=== PATIENT | male | born 1965 | race Caucasian/White ===

== ENCOUNTER 2022-09-23 08:21 | Day surgery (SDC) | payer OTHER ==
[~2022-09-23] VITALS: Ht 185.4 cm; Wt 133.4 kg
[~2022-09-23 08:21] MED LIST: ASPIRIN E.C. 8181 MG PO; BETAPACE 80MG80 MG PO; ELIQUIS 5MG PO; ISOPTIN SR120 MG PO; LIPITOR 40MG TA40 MG PO; PRINIVIL10 MG PO; SYNTHROID0.075 MG/T PO; TOPROL XL100 MG PO; VITAMIN B12 1541 TAB PO; VITAMIN D 400400 IU PO
[2022-09-23] MEDS ORDERED: BETAPACE 120MG120 MG PO (08:46)
[2022-09-23 09:39] VITALS: BP 126/86; PULSE 73; TEMP 98
[2022-09-23 09:45] LABS: BASO # 0.1 K/mm3 (0.0-0.2); BASO % 0.7 % (0.0-2.0); EOS # 0.1 K/mm3 (0.0-0.7); GRAN # 4.5 K/mm3 (1.4-6.5); GRAN % 64.8 % (42.2-75.2); HEMATOCRIT 49.5 % (42.0-52.0); HEMOGLOBIN 16.6 g/dl (13.5-18.0); LYMPH # 1.6 K/mm3 (1.2-3.4); LYMPH % 23.8 % (20.0-51.0); MEAN CELL VOLUME 93 fl (80.0-100.0); MEAN CORPUSCULAR HEMOGLOBIN 31 pg (27-31); MEAN CORPUSCULAR HGB CONC 34 g/dl (33.0-37.0); MEAN PLATELET VOLUME 8.9 fl (7.4-10.4); MONO # 0.7 K/mm3 (0.1-0.6); MONO % 9.6 % (1.7-9.3); PLATELET COUNT 199 K/mm3 (130-400); RED BLOOD COUNT 5.32 M/mm3 (4.20-5.60); REDCELL DISTRIBUTION WIDTH-CV 14.5 % (11.5-14.5)
[2022-09-23 10:00] LABS: CALCIUM 9.4 mg/dL (8.4-10.2); CREATININE, serum 0.78 mg/dL (0.72-1.25); POTASSIUM 4.1 mmol/L (3.5-4.5)
[2022-09-23 10:12] LABS: INR 1.4 (0.8-3.0); PROTHROMBIN TIME 15.6 SECONDS (9.7-12.8)
[2022-09-23 10:15] LABS: PARTIAL THROMBOPLASTIN TIME 45.5 SECONDS (26.0-37.0)
[2022-09-23 10:16] VITALS: BP 127/71; PULSE 76
[2022-09-23 10:21] LABS: THYROID STIMULATING HORMONE 2.537 uIU/mL (0.350-4.940)
[2022-09-23 10:30] VITALS: PULSE 62
[2022-09-23 10:45] VITALS: PULSE 69
[2022-09-23 11:00] VITALS: PULSE 67
[2022-09-23 11:15] VITALS: BP 148/85; PULSE 61
--- NOTE | 2022-09-23 11:20 | NUR ---
Pt has done well during his recovery. Pt has remained in SR with occasional pacs since his cardioversion. 1% hydrocortisone cream was applied to areas where patches were placed to treat some discomfort in these areas. Pt remained awake and alert, he was able to drink some fluids. Pt walked to bathroom and back to room 11 with steady gait. Pt stated felt "better" than when he walked in to express unit earlier today. I reviewed dc/rx/fu instructions with pt and ; both verbalized understanding. Pt was escorted to exit via wheelchair.
== END 2022-09-23 11:56 | disposition home or self-care (01) ==
LOC: COL.CAR 08:21
PROVIDERS: Internal Medicine Adult Congenital Heart Disease
DX: I48.19 Other persistent atrial fibrillation (principal); E66.01 Morbid (severe) obesity due to excess calories; I10 Essential (primary) hypertension; I25.10 Atherosclerotic heart disease of native coronary artery without angina pectoris; E78.2 Mixed hyperlipidemia; G47.33 Obstructive sleep apnea (adult) (pediatric); I08.1 Rheumatic disorders of both mitral and tricuspid valves; Z68.39 Body mass index [BMI] 39.0-39.9, adult; Z79.899 Other long term (current) drug therapy
CPT/HCPCS: J2704

== ENCOUNTER 2022-12-16 22:28 | Observation (INO) | payer OTHER ==
[~2022-12-16] VITALS: Ht 185.4 cm; Wt 134.0 kg
[~2022-12-16 22:28] MED LIST changes: +BETAPACE 120MG120 MG PO
[2022-12-16 22:44] LABS: BASO # 0.1 K/mm3 (0.0-0.2); BASO % 0.6 % (0.0-2.0); EOS # 0.2 K/mm3 (0.0-0.7); GRAN # 4.7 K/mm3 (1.4-6.5); GRAN % 56.9 % (42.2-75.2); HEMATOCRIT 49.8 % (42.0-52.0); HEMOGLOBIN 16.7 g/dl (13.5-18.0); LYMPH # 2.2 K/mm3 (1.2-3.4); LYMPH % 26.9 % (20.0-51.0); MEAN CELL VOLUME 94 fl (80.0-100.0); MEAN CORPUSCULAR HEMOGLOBIN 32 pg (27-31); MEAN CORPUSCULAR HGB CONC 34 g/dl (33.0-37.0); MEAN PLATELET VOLUME 9.1 fl (7.4-10.4); MONO # 1.1 K/mm3 (0.1-0.6); MONO % 13.4 % (1.7-9.3); PLATELET COUNT 175 K/mm3 (130-400); REDCELL DISTRIBUTION WIDTH-CV 14.8 % (11.5-14.5)
[2022-12-16] MEDS ORDERED: GLUCOPHAGE XR500 M1 PO (22:54)
[2022-12-16 23:04] LABS: ALBUMIN 4.3 gm/dL (3.5-5.0); BILIRUBIN,TOTAL 0.7 mg/dL (0.2-1.2); CALCIUM 9.7 mg/dL (8.4-10.2); CREATININE, serum 0.87 mg/dL (0.72-1.25); POTASSIUM 4.1 mmol/L (3.5-4.5); TOTAL PROTEIN 7.3 gm/dL (6.2-8.1)
[2022-12-16 23:25] LABS: TROPONIN-I 0.036 ng/mL (0.00-0.033)
[2022-12-17] VITALS (14 sets, daily range): BP systolic 106–135; BP diastolic 57–85; PULSE 51–102; TEMP 97.5–98.2
[2022-12-17 07:28] LABS: BASO # 0.1 K/mm3 (0.0-0.2); EOS # 0.1 K/mm3 (0.0-0.7); EOS % 1.9 % (0.0-4.0); GRAN # 3.3 K/mm3 (1.4-6.5); GRAN % 55.7 % (42.2-75.2); HEMATOCRIT 44.1 % (42.0-52.0); HEMOGLOBIN 15.3 g/dl (13.5-18.0); LYMPH # 1.8 K/mm3 (1.2-3.4); LYMPH % 30.7 % (20.0-51.0); MEAN CELL VOLUME 94 fl (80.0-100.0); MEAN CORPUSCULAR HEMOGLOBIN 33 pg (27-31); MEAN CORPUSCULAR HGB CONC 35 g/dl (33.0-37.0); MEAN PLATELET VOLUME 9.7 fl (7.4-10.4); MONO # 0.6 K/mm3 (0.1-0.6); MONO % 10.4 % (1.7-9.3); PLATELET COUNT 159 K/mm3 (130-400); RED BLOOD COUNT 4.67 M/mm3 (4.20-5.60); REDCELL DISTRIBUTION WIDTH-CV 14.6 % (11.5-14.5)
[2022-12-17 07:40] LABS: CALCIUM 8.5 mg/dL (8.4-10.2); CREATININE, serum 0.76 mg/dL (0.72-1.25); MAGNESIUM 1.9 mg/dL (1.6-2.6); POTASSIUM 4.2 mmol/L (3.5-4.5)
[2022-12-17 08:05] LABS: TSH w REFLEX 1.725 uIU/mL (0.350-4.940)
--- NOTE | 2022-12-17 08:06 | NUR ---
CRITICAL TROP CALLED TO THIS RN TRANG DURAN PATIENT ROOM. PATIENT AWAKE AND ALERT, RESTING IN BED. DENEIS ANY CHEST PAIN, SOB OR OTHER COMPLAINTS. PATIENT STATED HE HAD SOME CRACKERS AND WATER AT 0300. INFORMED PATIENT NOTHING MORE TO EAT OR DRINK UNTIL CARDIOLOGY ROUNDS. PER PATIENT HE WAS SUPPOSED TO SEE DR MARROQUIN IN [place] TODAY AND FIND OUT THE RESUTLS OF AN MRI HE HAD OF HIS HEART. WILL PASS ON TO CARDS.
[2022-12-17 09:50] LABS: PARTIAL THROMBOPLASTIN TIME 40.6 SECONDS (26.0-37.0)
--- NOTE | 2022-12-17 12:37 | NUR ---
SPOKE WITH VENTILATION MECHANIC AND CONFIRMED THEY WOULD LIKE HEPARIN DRIP CONTINUED.
--- NOTE | 2022-12-17 15:27 | NUR ---
SW met with patient to complete intake and discuss discharge plan. Patient reports that he lives at home with his Brittny ([phone]) in [place]. He is fully independent with his ADL's and IADL's. He denies any DME needs to assist with mobility and has no home oxygen needs. PCP is and he utilizes [facility] for prescriptions. Patient denies having a DPOA-HC established and does not wish to create one at this time. He is planning on returning home once medically ready. Discharge plan: Home
--- NOTE | 2022-12-17 19:46 | NUR ---
CALLED [facility] REGARDING CRITICAL PTT 164.6, GOING TO FOLLOW HEPARIN PROTOCOL.
--- NOTE | 2022-12-17 21:02 | NUR ---
AROUND 1930 PT'S NURSE CALLED AND NOTIFIED CONTACT AND SERVICE CLERKS SUPERVISOR THAT WE DO NOT NEED TO CALL UNTIL HR SUSTAINS IN BELOW HR OF 35. TELE WILL KEEP AN EYE ON IT.
--- NOTE | 2022-12-17 22:40 | NUR ---
PT ASSESSED AT 1955, PT AOX4, NO SIGNS OF WITHDRAWAL. PT INFORMED OF THE CIWA PROTOCOL AND Q2 VITALS PT REQUESTED/REFUSED TO Q2 VS IF ASLEEP. BUT WAS AGREEABLE TO THE NORMAL Q4. PT RESTING COMFORTABLY IN BED SLIGHT THROAT PAIN, CALLED GISEL ARNETT RECIEVED ORDERS FOR HALS ANNE. PTS VSS.
[2022-12-18 00:39] VITALS: BP_SYST 124
[2022-12-18 03:50] LABS: BASO % 0.6 % (0.0-2.0); EOS # 0.1 K/mm3 (0.0-0.7); EOS % 2.1 % (0.0-4.0); GRAN # 3.6 K/mm3 (1.4-6.5); GRAN % 57.2 % (42.2-75.2); LYMPH % 31.5 % (20.0-51.0); MEAN CELL VOLUME 93 fl (80.0-100.0); MEAN CORPUSCULAR HEMOGLOBIN 32 pg (27-31); MEAN CORPUSCULAR HGB CONC 35 g/dl (33.0-37.0); MEAN PLATELET VOLUME 9.5 fl (7.4-10.4); MONO # 0.5 K/mm3 (0.1-0.6); MONO % 8.4 % (1.7-9.3); PLATELET COUNT 148 K/mm3 (130-400); RED BLOOD COUNT 4.64 M/mm3 (4.20-5.60); REDCELL DISTRIBUTION WIDTH-CV 14.6 % (11.5-14.5)
[2022-12-18 04:01] VITALS: BP 137/80; PULSE 51; TEMP 97.7
[2022-12-18 04:10] LABS: CALCIUM 8.9 mg/dL (8.4-10.2); CREATININE, serum 0.77 mg/dL (0.72-1.25); MAGNESIUM 1.9 mg/dL (1.6-2.6); POTASSIUM 3.8 mmol/L (3.5-4.5)
[2022-12-18 04:18] VITALS: BP_SYST 137
--- NOTE | 2022-12-18 06:10 | NUR ---
PT HAS HAD THROAT PAIN FOLLOWING JULIUS, HAVE TRIED HALS LOZENGE AND CHORLASEPTIC SPRAY. PT WAS ABLE TO TAKE MEDS CRUSHED IN APPLESAUCE THIS AM.
--- NOTE | 2022-12-18 06:12 | NUR ---
PT ASSESSED AT 2150 AOX4, NO COMPLAINTS OF PAIN, VSS. RESTING IN LOW BED WITH CALL LIGHT WITHIN REACH AND BED ALARM ON. PTS ILIOSTOMY BAG STARTED TO LEAK AROUND 0000 VITALS, 2 PEICE SYSTEM REPLACED. PT HAS BEEN NPO SINCE MIDNIGHT FOR EGD 12/18
--- NOTE | 2022-12-18 07:34 | NUR ---
PTT 63.8, restarted heparin gtt at 17.5ml/hr per protocol.
[2022-12-18 07:41] VITALS: BP 136/70; PULSE 53; TEMP 97.7
--- NOTE | 2022-12-18 09:18 | NUR ---
Pt Ox4, VSS, SB 55-60 on telemetry. Reports throat pain is improved. Is going to order soft items for breakfast and attempt to eat. IV Fluids continue at 50ml/hr per pt request r/t not being able to swallow well overnight. Is requesting d/c today.
--- NOTE | 2022-12-18 09:35 | NUR ---
Stopped heparin gtt per order. Stopped IV fluids.
[2022-12-18 09:48] VITALS: BP_SYST 136
--- NOTE | 2022-12-18 11:45 | NUR ---
Discussed d/c instructions with pt. Discussed last time meds taken and meds remaining to take today. Pt will restart Eloquis tonight. IV d/c from L hand, complete/intact, wrapped with coban. Pt acknowledges understanding of d/c orders. Will f/u per appt with PCP. All belongings packed by pt. Pt ambulates from facility with staff to POV driven by .
== END 2022-12-18 11:45 | disposition home or self-care (01) ==
LOC: COL.ER 22:28 → MEDICAL 12-17 02:32
PROVIDERS: Emergency Medicine; Physician Assistant; Student in an Organized Health Care Education/Training Program; ADMIT Internal Medicine
DX: I48.91 Unspecified atrial fibrillation (principal); I10 Essential (primary) hypertension; I25.10 Atherosclerotic heart disease of native coronary artery without angina pectoris; R77.8 Other specified abnormalities of plasma proteins; E78.5 Hyperlipidemia, unspecified; R73.03 Prediabetes; E03.9 Hypothyroidism, unspecified; E66.9 Obesity, unspecified; F10.90 Alcohol use, unspecified, uncomplicated; Z79.899 Other long term (current) drug therapy; Z79.84 Long term (current) use of oral hypoglycemic drugs; Z79.890 Hormone replacement therapy; Z79.01 Long term (current) use of anticoagulants; G47.33 Obstructive sleep apnea (adult) (pediatric); Z99.81 Dependence on supplemental oxygen
CPT/HCPCS: G0378; J1644; J2704; J7030